=== PATIENT | male | born 1970 | race Caucasian/White ===

== ENCOUNTER 2019-03-28 12:05 | Emergency (ER) | payer BC ==
[2019-03-28 12:10] VITALS: BP 136/81; PULSE 86; TEMP 99; BMI 30.7
[2019-03-28] MEDS ORDERED: predniSONE 20 MG TABLET (UD) PO ONE (12:38)
[2019-03-28] MEDS ORDERED: predniSONE 20 MG TABLET (UD) ONE ×2 (12:45→12:46)
--- NOTE | 2019-03-28 12:46 | PDOC ---
History of Present Illness - General Chief Complaint: Bite Stated Complaint: REDNESS ON LEGS Time Seen by Provider: 03/28/19 12:19 History Source: Patient Exam Limitations: No Limitations Past History - Past Medical History Allergies/Adverse Reactions: Allergies Allergy/AdvReac Type Severity Reaction Status Date / Time No Known Allergies Allergy Verified 03/28/19 12:10 Home Medications: Ambulatory Orders Hydrocodone/Acetaminophen [[place] 5-325 Tablet] 1 tab PO TID 11/08/13 Naproxen Sodium [Aleve] 220 mg PO BID 11/08/13 Prednisone [Deltasone] 40 mg PO DAILY #10 tablet 03/28/19 COPD: No Psychiatric Problems: Yes (anxiety) - Suicide/Smoking/Psychosocial Hx Smoking Status: Yes Smoking History: Current every day smoker Number of Cigarettes Smoked Daily: 30 Information on smoking cessation initiated: No Hx Alcohol Use: Yes (DAILY) Drug/Substance Use Hx: No Substance Use Type: None *Physical Exam - Vital Signs Last Vital Signs Temp Pulse Resp BP Pulse Ox 99 F 86 18 136/81 99 03/28/19 12:07 03/28/19 12:07 03/28/19 12:07 03/28/19 12:07 03/28/19 12:07 - Physical Exam General Appearance: No: Apparent Distress Respiratory/Chest: positive: Lungs Clear, Normal Breath Sounds. negative: Respiratory Distress Cardiovascular: positive: Regular Rhythm, Regular Rate, S1, S2. negative: Murmur Gastrointestinal/Abdominal: positive: Soft. negative: Tender Integumentary: positive: Rash (small raised red bumps along BLE and BUE, not vesicular in appearance, no petechiae, not urtcarial, larger macular rash along RLE). negative: Jaundice, Mottled, Hives, Petechiae, Swelling, Ecchymosis, Bruising Neurologic: positive: Alert, Normal Mood/Affect Medical Decision Making - Medical Decision Making 49 y/o M with no sig pmh presents with rash along BUE and BLE x 1 week. Mentions was weed whacking. Denies recent travel/camping/hiking, fever, sob, cp , abd pain, n/v, myalgia/arthralgia. Has only tried topical antibiotic on it. States rash is slightly itchy. Denies recent viral syndrome Does not appear as poison [place] or scabies Does not appear urticarial Will try short course of steroids and refer to derm Patient does not want benadryl now as he is driving 03/28/19 12:43 *DC/Admit/Observation/Transfer Diagnosis at time of Disposition: Rash - Discharge Dispostion Disposition: HOME Condition at time of disposition: Stable Decision to Admit order: No - Prescriptions Prescriptions: Prednisone [Deltasone] 40 mg PO DAILY #10 tablet - Referrals Referrals: Ciaran Alaniz MD [Primary Care Provider] - 2 Days Lexis Teague MD [Staff Physician] - Call tomorrow - Patient Instructions Printed Discharge Instructions: DI for Rash Additional Instructions: Thank you for choosing [facility]. It was a pleasure taking care of you. 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 - Post Discharge Activity
== END 2019-03-28 12:50 | disposition home or self-care (01) ==
LOC: JERFT 12:05
DX: R21 Rash and other nonspecific skin eruption (principal)
CPT/HCPCS: 99281-25

== ENCOUNTER 2021-12-26 04:14 | Day surgery (SDC) | payer BC, OTHER ==
[2021-12-25 09:34] VITALS: BMI 32.1
[2021-12-26] MEDS ORDERED: ROPIVACAINE HCL 0.5% 30ML VIAL ONE (07:37)
[2021-12-26] MEDS ORDERED: LIDOCAINE HCL/PF 2% SDV 5ML VIAL ONE (07:39)
[2021-12-26] MEDS ORDERED: ceFAZolin SODIUM 1 GM VIAL ONE (07:39)
[2021-12-26] MEDS ORDERED: PROPOFOL 20 ML ONE ×3 (07:39→08:57)
[2021-12-26] MEDS ORDERED: MIDAZOLAM HCL 2 MG/2 ML SINGLE DOSE VIAL ONE ×2 (07:39)
[2021-12-26] MEDS ORDERED: ceFAZolin SODIUM 1 GM VIAL IVPB ONE (08:52)
[2021-12-26] MEDS ORDERED: ONDANSETRON 4 MG/2 ML VIAL ONE ×2 (08:57→12:04)
[2021-12-26] MEDS ORDERED: DEXAMETHASONE SOD PHOSPHATE 4 MG/1 ML VIAL ONE (08:57)
[2021-12-26] MEDS ORDERED: SEVOFLURANE 250 ML BTL ONE (09:04)
[2021-12-26] MEDS ORDERED: hydrALAZINE HCL 20 MG/ML VIAL ONE (09:20)
[2021-12-26] MEDS ORDERED: KETOROLAC TROMETHAMINE 30 MG/1 ML VIAL ONE (10:18)
[2021-12-26] MEDS ORDERED: ONDANSETRON 4 MG/2 ML VIAL IVPUSH PRN (10:40)
[2021-12-26] MEDS ORDERED: oxyCODONE HCL 5 MG TABLET PO PRN (10:40)
[2021-12-26] MEDS ORDERED: LACTATED RINGERS SOLUTION 1,000 ML IV SCH (10:45)
[2021-12-26 14:31] VITALS: BP 120/76; PULSE 88; TEMP 97.8
== END 2021-12-26 15:00 | disposition home or self-care (01) ==
LOC: JASU-SURG 04:14
PROVIDERS: ATTEND Orthopaedic Surgery
PROC: 0LM10ZZ Reattachment of Right Shoulder Tendon, Open Approach (ICD-10-PCS; 2021-12-26)
PROC: 0RNJ4ZZ Release Right Shoulder Joint, Percutaneous Endoscopic Approach (ICD-10-PCS; principal; 2021-12-26 08:00)
PROC: 0RBJ4ZZ Excision of Right Shoulder Joint, Percutaneous Endoscopic Approach (ICD-10-PCS; 2021-12-26 08:00)
DX: M75.41 Impingement syndrome of right shoulder (principal); M75.101 Unspecified rotator cuff tear or rupture of right shoulder, not specified as traumatic; M65.811 Other synovitis and tenosynovitis, right shoulder; S46.211A Strain of muscle, fascia and tendon of other parts of biceps, right arm, initial encounter; X58.XXXA Exposure to other specified factors, initial encounter; Y93.9 Activity, unspecified; Y92.9 Unspecified place or not applicable; Y99.9 Unspecified external cause status
CPT/HCPCS: 94760

== ENCOUNTER 2022-07-29 04:08 | Day surgery (SDC) | payer OTHER ==
[2022-07-26 09:21] VITALS: BMI 32.1
[2022-07-29] MEDS ORDERED: PROPOFOL 20 ML ONE (11:06)
[2022-07-29] MEDS ORDERED: PHENYLEPHRINE HCL 10 MG/1 ML SINGLE DOSE VIAL ONE (11:07)
[2022-07-29] MEDS ORDERED: ROPIVACAINE HCL 0.5% 30ML VIAL ONE (11:55)
[2022-07-29] MEDS ORDERED: FENTANYL CITRATE/PF 50 MCG/ML VIAL ONE ×4 (11:56→13:42)
[2022-07-29] MEDS ORDERED: MIDAZOLAM HCL 2 MG/2 ML SINGLE DOSE VIAL ONE (11:56)
[2022-07-29] MEDS ORDERED: LIDOCAINE HCL/PF 2% SDV 5ML VIAL ONE (12:26)
[2022-07-29] MEDS ORDERED: DEXAMETHASONE SOD PHOSPHATE 4 MG/1 ML VIAL ONE (12:27)
[2022-07-29] MEDS ORDERED: ONDANSETRON 4 MG/2 ML VIAL ONE (12:27)
[2022-07-29] MEDS ORDERED: ceFAZolin SODIUM 1 GM VIAL ONE (12:27)
[2022-07-29] MEDS ORDERED: ceFAZolin SODIUM 1 GM VIAL IVPB ONE (12:30)
[2022-07-29] MEDS ORDERED: TRANEXAMIC ACID 1000 MG/10 ML VIAL ONE (12:44)
[2022-07-29] MEDS ORDERED: ROCURONIUM BROMIDE 50 MG/5 ML SYRINGE ONE (12:55)
[2022-07-29] MEDS ORDERED: ACETAMINOPHEN INJECTION 100 ML IVPB ONE (13:13)
[2022-07-29] MEDS ORDERED: ALBUTEROL SO4 HFA INHALER IH ONE (13:14)
[2022-07-29] MEDS ORDERED: ONDANSETRON 4 MG/2 ML VIAL IVPUSH PRN (13:20)
[2022-07-29] MEDS ORDERED: oxyCODONE HCL 5 MG TABLET PO PRN ×2 (13:20)
[2022-07-29] MEDS ORDERED: PROMETHAZINE HCL 25 MG/1 ML VIAL IVPB PRN (13:20)
[2022-07-29] MEDS ORDERED: LACTATED RINGERS SOLUTION 1,000 ML IV SCH (13:30)
[2022-07-29] MEDS ORDERED: GLYCOPYRROLATE 0.2 MG/1 ML VIAL ONE (13:35)
[2022-07-29] MEDS ORDERED: NEOSTIGMINE METHYLSULFATE 0.5 MG/1 ML - 10 ML MDV ONE (13:35)
[2022-07-29 15:48] VITALS: RESP 18
[2022-07-29 16:50] VITALS: BP 120/68; PULSE 72; TEMP 98.8
== END 2022-07-29 16:42 | disposition home or self-care (01) ==
LOC: JASU-SURG 04:08
PROVIDERS: ATTEND Orthopaedic Surgery
PROC: 0RNJ4ZZ Release Right Shoulder Joint, Percutaneous Endoscopic Approach (ICD-10-PCS; principal; 2022-07-29 11:00)
PROC: 0LM14ZZ Reattachment of Right Shoulder Tendon, Percutaneous Endoscopic Approach (ICD-10-PCS; 2022-07-29 11:00)
DX: M75.101 Unspecified rotator cuff tear or rupture of right shoulder, not specified as traumatic (principal); M75.51 Bursitis of right shoulder
CPT/HCPCS: 29826; 29827; C9781; L8699; 94760; C1713; C1889